=== PATIENT | male | born 1955 | race Caucasian/White ===

== ENCOUNTER 2020-01-08 13:35 | Outpatient (CLI) | payer BC | END 2020-01-08 23:59 | disposition home or self-care (01) | LOC: CFH 13:35 | PROVIDERS: ATTEND Student in an Organized Health Care Education/Training Program | DX: Z12.2 Encounter for screening for malignant neoplasm of respiratory organs (principal); K80.20 Calculus of gallbladder without cholecystitis without obstruction; M51.44 Schmorl's nodes, thoracic region; Z87.891 Personal history of nicotine dependence | CPT/HCPCS: G0297 ==